=== PATIENT | male | born 1950 | race Caucasian/White ===

== ENCOUNTER 2017-05-04 06:18 | Inpatient (IN) ==
[2017-05-04] MEDS ORDERED: FAMOTIDINE 20 MG/2 ML VIAL IV STA (06:29)
[2017-05-04] MEDS ORDERED: ONDANSETRON 4 MG/2 ML VIAL IV STA (06:29)
[2017-05-04] MEDS ORDERED: SODIUM CHLORIDE 0.9% 1,000 ML IV STA (06:29)
[2017-05-04] MEDS ORDERED: SODIUM CHLORIDE 0.9% 2,000 ML IV STA (06:30)
[2017-05-04 06:46] LABS: Basophils # 0.2 10*3/uL (0.0-0.2); Basophils % 0.8 % (0.0-0.8); Eosinophils # 0.5 10*3/uL (0.0-0.87); Eosinophils % 2.6 % (0.00-10.9); Hematocrit 34.7 VOL% (42.0-52.0); Hemoglobin 11.5 GM/DL (14.0-18.0); Immature Granulocytes % 1.9 %; Immature Granulocytes Absolute 0.38 #; Lymphocytes # 2.7 10*3/uL (1.4-4.0); Lymphocytes % 13.8 % (21.2-54.2); Mean Corpuscular HGB Conc 33.1 GM/DL (32-36); Mean Corpuscular Hemoglobin 29 PG (27-34); Mean Corpuscular Volume 88.3 FL (87-102); Mean Platelet Volume 8.2 FL (9.6-12.0); Monocytes # 1.8 10*3/uL (0.11-0.8); Monocytes % 9.1 % (1.7-12.7); Neutrophils # 14.2 10*3/uL (1.4-7.4); Neutrophils % 71.8 % (38.7-73.9); Platelet Count 466 T/CUMM (130-400); Red Blood Count 3.93 MC/CUMM (3.8-5.5); Red Cell Distribution Width 13.4 % (9.3-17.3); White Blood Count 19.8 T/CUMM (4-12)
[2017-05-04] MEDS ORDERED: FAMOTIDINE 20 MG/2 ML VIAL IV ONE (06:46)
[2017-05-04] MEDS ORDERED: ONDANSETRON 4 MG/2 ML VIAL ONE ×2 (06:46→10:37)
[2017-05-04 06:55] LABS: INR 1.1; PT Patient Result 11.4 SECS; Partial Thromboplastin Time 21.2 SECS (0-40)
[2017-05-04 07:04] LABS: Albumin 3.4 G/DL (3.4-5.0); Bilirubin,Total 0.4 MG/DL (0.2-1.0); Calcium 9.1 MG/DL (8.5-10.1); Osmolality,Calculated 276.2 MOS/KG (273-304); Potassium 4.6 MMOL/L (3.5-5.1); Total Protein 6.5 G/DL (6.4-8.3)
[2017-05-04] MEDS ORDERED: ONDANSETRON 4 MG/2 ML VIAL IV PRN (08:14)
[2017-05-04 08:49] LABS: Apearance,Urine CLOUDY (Clear); Bilirubin,Urine Negative (Negative); Blood, Urine Negative (Negative); Glucose,Urine (UA) Negative (Negative); Ketones,Urine 5 mg/dL (Negative); Nitrite,Urine Negative (Negative); Protein,Urine 100 MG/DL; Urine Specific Gravity 1.021 (1.001-1.035); Urine Urobilinogen < 2.0 EU/DL (0.2-1.0); WBC,Urine <1 /HPF (0-6)
[2017-05-04 08:50] LABS: Urine Color Yellow (Yellow)
[2017-05-04] MEDS: SODIUM CHLORIDE 0.9% 1,000 ML IV SCH ×2 (10:31→18:58)
[2017-05-04] MEDS ORDERED: ACETAMINOPHEN 325 MG TABLET ONE (10:37)
[2017-05-04] MEDS: ACETAMINOPHEN 325 MG TABLET PO PRN ×2 (10:38→13:13)
[2017-05-04] MEDS: PANTOPRAZOLE 40 MG VIAL IV SCH ×2 (13:09→21:05)
[2017-05-04 14:00] LABS: Hematocrit 29.6 VOL% (42.0-52.0); Hemoglobin 9.7 GM/DL (14.0-18.0)
[2017-05-04] MEDS: oxyCODONE/ACETAMINOPHEN 5-325 MG TABLET PO PRN (17:33)
[2017-05-04 18:41] LABS: Basophils # 0.1 10*3/uL (0.0-0.2); Basophils % 0.7 % (0.0-0.8); Eosinophils # 0.3 10*3/uL (0.0-0.87); Eosinophils % 2.6 % (0.00-10.9); Hematocrit 25.4 VOL% (42.0-52.0); Hemoglobin 8.3 GM/DL (14.0-18.0); Immature Granulocytes % 0.6 %; Immature Granulocytes Absolute 0.06 #; Lymphocytes # 2.9 10*3/uL (1.4-4.0); Lymphocytes % 26.3 % (21.2-54.2); Mean Corpuscular HGB Conc 32.7 GM/DL (32-36); Mean Corpuscular Hemoglobin 29 PG (27-34); Mean Corpuscular Volume 87.6 FL (87-102); Mean Platelet Volume 8.1 FL (9.6-12.0); Monocytes # 1.5 10*3/uL (0.11-0.8); Monocytes % 14.1 % (1.7-12.7); Neutrophils # 6.1 10*3/uL (1.4-7.4); Neutrophils % 55.7 % (38.7-73.9); Platelet Count 342 T/CUMM (130-400); Red Cell Distribution Width 13.5 % (9.3-17.3); White Blood Count 10.9 T/CUMM (4-12)
[2017-05-04] MEDS ORDERED: oxyCODONE/ACETAMINOPHEN 5-325 MG TABLET PO SCH (21:00)
[2017-05-04] MEDS: ZALEPLON 5 MG CAPSULE PO PRN (21:06)
[2017-05-05] MEDS: SODIUM CHLORIDE 0.9% 1,000 ML IV SCH (03:39)
[2017-05-05 05:05] LABS: Basophils # 0.1 10*3/uL (0.0-0.2); Basophils % 0.8 % (0.0-0.8); Eosinophils # 0.4 10*3/uL (0.0-0.87); Eosinophils % 5.1 % (0.00-10.9); Hematocrit 25.5 VOL% (42.0-52.0); Hemoglobin 8.2 GM/DL (14.0-18.0); Immature Granulocytes % 0.5 %; Immature Granulocytes Absolute 0.04 #; Lymphocytes # 2.1 10*3/uL (1.4-4.0); Lymphocytes % 25.2 % (21.2-54.2); Mean Corpuscular HGB Conc 32.2 GM/DL (32-36); Mean Corpuscular Hemoglobin 29 PG (27-34); Mean Corpuscular Volume 89.2 FL (87-102); Mean Platelet Volume 8.3 FL (9.6-12.0); Monocytes # 1.2 10*3/uL (0.11-0.8); Monocytes % 13.9 % (1.7-12.7); Neutrophils # 4.5 10*3/uL (1.4-7.4); Neutrophils % 54.5 % (38.7-73.9); Platelet Count 327 T/CUMM (130-400); Red Blood Count 2.86 MC/CUMM (3.8-5.5); Red Cell Distribution Width 13.5 % (9.3-17.3); White Blood Count 8.3 T/CUMM (4-12)
[2017-05-05 05:49] LABS: Albumin 2.9 G/DL (3.4-5.0); Bilirubin,Total 0.4 MG/DL (0.2-1.0); Osmolality,Calculated 277.5 MOS/KG (273-304); Potassium 4.2 MMOL/L (3.5-5.1); Total Protein 5.3 G/DL (6.4-8.3)
[2017-05-05] MEDS ORDERED: MAGNESIUM SULF RIDER 4 GM in PREMIX 1 EACH IV PRN (10:04)
[2017-05-05] MEDS ORDERED: MAGNESIUM SULF RIDER 2 GM in PREMIX 1 EACH IV PRN (10:04)
[2017-05-05] MEDS: PANTOPRAZOLE 40 MG VIAL IV SCH (10:24)
[2017-05-05] MEDS ORDERED: hydrALAZINE 20 MG/1 ML VIAL IV PRN (10:29)
[2017-05-05] MEDS ORDERED: PROPOFOL 200 MG/20 ML VIAL IV ONE (12:21)
[2017-05-05] MEDS ORDERED: LIDOCAINE 2% 5 ML VIAL ONE (12:21)
[2017-05-05] MEDS: oxyCODONE/ACETAMINOPHEN 5-325 MG TABLET PO PRN (13:55)
[2017-05-05] MEDS: CARVEDILOL 6.25 MG TABLET PO SCH (16:58)
[2017-05-05] MEDS ORDERED: ATORVASTATIN 20 MG TABLET PO SCH (21:00)
[2017-05-05] MEDS: PANTOPRAZOLE 40 MG TABLET PO SCH (21:15)
[2017-05-05] MEDS: ZALEPLON 5 MG CAPSULE PO PRN (21:17)
[2017-05-06] MEDS: oxyCODONE/ACETAMINOPHEN 5-325 MG TABLET PO PRN ×2 (01:36→09:04)
[2017-05-06 05:11] LABS: Basophils # 0.1 10*3/uL (0.0-0.2); Basophils % 0.9 % (0.0-0.8); Eosinophils # 0.5 10*3/uL (0.0-0.87); Eosinophils % 6.4 % (0.00-10.9); Hematocrit 24.5 VOL% (42.0-52.0); Hemoglobin 7.8 GM/DL (14.0-18.0); Immature Granulocytes % 0.7 %; Immature Granulocytes Absolute 0.05 #; Mean Corpuscular HGB Conc 31.8 GM/DL (32-36); Mean Corpuscular Hemoglobin 28 PG (27-34); Mean Corpuscular Volume 89.1 FL (87-102); Mean Platelet Volume 8.6 FL (9.6-12.0); Monocytes % 13.2 % (1.7-12.7); Neutrophils # 3.9 10*3/uL (1.4-7.4); Neutrophils % 51.8 % (38.7-73.9); Platelet Count 356 T/CUMM (130-400); Red Blood Count 2.75 MC/CUMM (3.8-5.5); Red Cell Distribution Width 13.6 % (9.3-17.3); White Blood Count 7.5 T/CUMM (4-12)
[2017-05-06 05:34] LABS: Calcium 7.9 MG/DL (8.5-10.1); Osmolality,Calculated 271.7 MOS/KG (273-304); Potassium 3.9 MMOL/L (3.5-5.1)
[2017-05-06 05:39] LABS: Risk Ratio 2.63; VLDL CHOLESTEROL 20.4 MG/DL
[2017-05-06] MEDS: CARVEDILOL 6.25 MG TABLET PO SCH (09:04)
[2017-05-06] MEDS: PANTOPRAZOLE 40 MG TABLET PO SCH (09:04)
[2017-05-06] MEDS ORDERED: NITROGLYCERIN SL 0.4 MG TABLET SL PRN (09:45)
[2017-05-06] MEDS ORDERED: LOSARTAN 25 MG TABLET PO SCH (10:00)
[2017-05-06] MEDS: SODIUM CHLORIDE 0.9% 1,000 ML IV SCH (11:16)
[2017-05-06 12:04] VITALS: BP 113/65
[2017-05-07] MEDS ORDERED: amLODIPine 2.5 MG TABLET PO SCH (09:00)
== END 2017-05-06 12:45 | disposition home or self-care (01) | DRG 378 ==
LOC: EDBD → EDUNIT# → N.ED 06:18 → N.EDINP 07:06 → N.4E 11:14
PROVIDERS: ADMIT Internal Medicine; ATTEND Internal Medicine

== ENCOUNTER 2020-10-31 12:34 | Inpatient (IN) ==
[2020-10-31] MEDS ORDERED: methylPREDNISolone SOD SUC 125 MG/2 ML VIAL IV STA (12:57)
[2020-10-31] MEDS ORDERED: ASPIRIN 325 MG TABLET PO STA (12:57)
[2020-10-31] MEDS ORDERED: ONDANSETRON 4 MG/2 ML VIAL IV ONE (12:57)
[2020-10-31] MEDS ORDERED: MORPHINE 2 MG/1 ML SYRINGE IV ONE (12:57)
[2020-10-31 13:35] LABS: Basophils # 0.1 10*3/uL (0.0-0.2); Basophils % 0.6 % (0.0-0.8); Eosinophils # 0.3 10*3/uL (0.0-0.87); Eosinophils % 2.2 % (0.00-10.9); Hematocrit 40.7 VOL% (42.0-52.0); Hemoglobin 13.3 GM/DL (14.0-18.0); Immature Granulocytes % 0.5 %; Immature Granulocytes Absolute 0.08 #; Lymphocytes # 1.7 10*3/uL (1.4-4.0); Mean Corpuscular HGB Conc 32.7 GM/DL (32-36); Mean Corpuscular Volume 94.2 FL (87-102); Monocytes % 8.2 % (1.7-12.7); Neutrophils % 77.5 % (38.7-73.9); Platelet Count 453 T/CUMM (130-400); Red Blood Count 4.32 MC/CUMM (3.8-5.5); Red Cell Distribution Width 13.5 % (9.3-17.3); White Blood Count 15.4 T/CUMM (4-12)
[2020-10-31 13:41] LABS: ABG Base Excess 1.8 MMOL/L (-2.5-2.5); ABG HCO3 25.9 MMOL/L (20-26); ABG Oxygen Saturation 91.6 % (95-100); ABG PCO2 55.2 MM HG (35-48); ABG PH 7.331 (7.35-7.45); ABG PO2 70.1 MM HG (80-95); ABG TCO2 25.7 MMOL/L (23-27); Allen Test Positive
[2020-10-31 13:54] LABS: Alanine Aminotransferase 17 U/L (16-61); Albumin 3.8 G/DL (3.4-5.0); Alkaline Phosphatase 81 U/L (45-117); Aspartate Amino Transferase 22 U/L (0-37); Bilirubin,Total < 0.39 MG/DL (0.20-1.00); Blood Urea Nitrogen 10 MG/DL (7-18); Calcium 9.3 MG/DL (8.5-10.1); Carbon Dioxide 29 MMOL/L (21-32); Estimated Glom Filtration Rate 103 ML/MIN; Glucose 122 MG/DL (74-106); Osmolality,Calculated 261.7 MOS/KG (273-304); Potassium 4.5 MMOL/L (3.5-5.1); Sodium 131 MMOL/L (136-145)
[2020-10-31] MEDS ORDERED: ALBUTEROL 2.5 MG/3 ML NEB RESP TX STA ×2 (14:34→15:14)
[2020-10-31] MEDS ORDERED: ALBUTEROL/IPRATROPIUM 3 ML NEB RESP TX STA (14:34)
[2020-10-31] MEDS ORDERED: cefTRIAXone 1,000 MG in SODIUM CHLORIDE 0.9% 100 ML IV STA (15:18)
[2020-10-31] MEDS ORDERED: AZITHROMYCIN INJ 500 MG in SODIUM CHLORIDE 0.9% 250 ML IV STA (15:18)
[2020-10-31] MEDS ORDERED: ONDANSETRON 4 MG/2 ML VIAL IV PRN (15:29)
[2020-10-31] MEDS ORDERED: DEXTROSE 50% 25 GM/50 ML VIAL IV PRN (15:29)
[2020-10-31] MEDS ORDERED: hydrALAZINE 20 MG/1 ML VIAL IV PRN (15:29)
[2020-10-31] MEDS ORDERED: ACETAMINOPHEN 325 MG TABLET PO PRN (15:29)
[2020-10-31] MEDS ORDERED: DOCUSATE SODIUM 100 MG CAPSULE PO PRN (15:29)
[2020-10-31] MEDS ORDERED: GLUCAGON 1 MG VIAL IM PRN (15:29)
[2020-10-31] MEDS ORDERED: ENOXAPARIN 40 MG/0.4 ML SYRINGE SUBCUT SCH (15:30)
[2020-10-31] MEDS ORDERED: IBUPROFEN 600 MG TABLET PO PRN (16:19)
[2020-10-31] MEDS: PANTOPRAZOLE 40 MG TABLET PO SCH (16:19)
[2020-10-31] MEDS: SODIUM CHLORIDE 0.9% 1,000 ML IV SCH (16:19)
[2020-10-31] MEDS: ALBUTEROL/IPRATROPIUM 3 ML NEB RESP TX SCH (19:53)
[2020-10-31 19:57] LABS: Bilirubin,Urine Negative (Negative); Blood, Urine Negative (Negative); Glucose,Urine (UA) Negative (Negative); Ketones,Urine Negative (Negative); Nitrite,Urine Negative (Negative); Protein,Urine Negative; RBC,Urine 1 /HPF (0-4); Squamous Epithelial Cell,Urine Occasional /HPF (0-10); Urine Appearance CLEAR (Clear); Urine Color Yellow (Yellow); Urine Specific Gravity > 1.069 (1.001-1.035); Urine Urobilinogen < 2.0 EU/DL (0.2-1.0)
[2020-10-31] MEDS: CITALOPRAM 20 MG TABLET PO SCH (20:24)
[2020-10-31] MEDS: oxyCODONE/ACETAMINOPHEN 5-325 MG TABLET PO PRN (20:25)
[2020-10-31] MEDS: GABAPENTIN 300 MG CAPSULE PO SCH (20:25)
[2020-10-31] MEDS: methylPREDNISolone SOD SUC 40 MG/1 ML VIAL IV SCH (20:32)
[2020-11-01] MEDS: ALBUTEROL/IPRATROPIUM 3 ML NEB RESP TX SCH ×4 (00:32→20:18)
[2020-11-01 04:21] LABS: ABG Base Excess -0.8 MMOL/L (-2.5-2.5); ABG HCO3 25.9 MMOL/L (20-26); ABG Oxygen Saturation 91.9 % (95-100); ABG PCO2 51.5 MM HG (35-48); ABG PH 7.319 (7.35-7.45); ABG TCO2 27.5 MMOL/L (23-27); Allen Test Positive
[2020-11-01] MEDS: methylPREDNISolone SOD SUC 40 MG/1 ML VIAL IV SCH ×2 (05:08→17:07)
[2020-11-01] MEDS: SODIUM CHLORIDE 0.9% 1,000 ML IV SCH ×2 (05:29→20:56)
[2020-11-01] MEDS: oxyCODONE/ACETAMINOPHEN 5-325 MG TABLET PO PRN (05:30)
[2020-11-01 06:35] LABS: Basophils % 0.1 % (0.0-0.8); Hematocrit 37.1 VOL% (42.0-52.0); Immature Granulocytes % 0.4 %; Immature Granulocytes Absolute 0.03 #; Lymphocytes # 0.9 10*3/uL (1.4-4.0); Lymphocytes % 11.7 % (21.2-54.2); Mean Corpuscular HGB Conc 32.3 GM/DL (32-36); Mean Corpuscular Volume 95.9 FL (87-102); Mean Platelet Volume 8.2 FL (9.6-12.0); Monocytes % 3.6 % (1.7-12.7); Neutrophils % 84.2 % (38.7-73.9); Platelet Count 394 T/CUMM (130-400); Red Blood Count 3.87 MC/CUMM (3.8-5.5); Red Cell Distribution Width 13.6 % (9.3-17.3); White Blood Count 7.3 T/CUMM (4-12)
[2020-11-01 07:34] LABS: Calcium 9.2 MG/DL (8.5-10.1); Osmolality,Calculated 272.1 MOS/KG (273-304); Potassium 4.6 MMOL/L (3.5-5.1); Risk Ratio 1.88; Thyroid Stimulating Hormone 0.45 uIU/ml (0.358-3.74); VLDL Cholesterol 13.2 MG/DL
[2020-11-01] MEDS: MULTIVITAMIN (CENTRUM) TABLET PO SCH (10:25)
[2020-11-01] MEDS: PANTOPRAZOLE 40 MG TABLET PO SCH (10:25)
[2020-11-01] MEDS: GABAPENTIN 300 MG CAPSULE PO SCH ×2 (10:25→20:35)
[2020-11-01] MEDS: CITALOPRAM 20 MG TABLET PO SCH ×2 (10:25→20:35)
[2020-11-01] MEDS: amLODIPine 2.5 MG TABLET PO SCH (10:25)
[2020-11-01] MEDS: cilostazoL 100 MG TABLET PO SCH ×2 (10:25→16:56)
[2020-11-01] MEDS: AZITHROMYCIN INJ 250 MG in SODIUM CHLORIDE 0.9% 250 ML IV SCH (10:26)
[2020-11-01] MEDS: oxyCODONE IR 5 MG TABLET PO PRN ×2 (11:52→20:35)
[2020-11-01] MEDS: NICOTINE 14 MG/24 HR PATCH TRANSDERM SCH (11:57)
[2020-11-01] MEDS: MELOXICAM 7.5 MG TABLET PO SCH (13:18)
[2020-11-01] MEDS: cefTRIAXone 1,000 MG in SODIUM CHLORIDE 0.9% 100 ML IV SCH (16:55)
[2020-11-01] MEDS: MORPHINE 2 MG/1 ML SYRINGE IV PRN ×2 (18:53→23:35)
[2020-11-02] MEDS: ALBUTEROL/IPRATROPIUM 3 ML NEB RESP TX SCH ×2 (00:44→07:23)
[2020-11-02] MEDS: MORPHINE 2 MG/1 ML SYRINGE IV PRN (03:32)
[2020-11-02] MEDS: methylPREDNISolone SOD SUC 40 MG/1 ML VIAL IV SCH (04:35)
[2020-11-02 06:02] LABS: Basophils % 0.1 % (0.0-0.8); Hematocrit 34.1 VOL% (42.0-52.0); Hemoglobin 10.9 GM/DL (14.0-18.0); Immature Granulocytes % 0.9 %; Immature Granulocytes Absolute 0.12 #; Mean Corpuscular Volume 96.9 FL (87-102); Mean Platelet Volume 8.4 FL (9.6-12.0); Monocytes % 7.2 % (1.7-12.7); Neutrophils % 83.8 % (38.7-73.9); Platelet Count 414 T/CUMM (130-400); Red Blood Count 3.52 MC/CUMM (3.8-5.5); Red Cell Distribution Width 13.6 % (9.3-17.3); White Blood Count 12.8 T/CUMM (4-12)
[2020-11-02 06:46] LABS: Calcium 9.1 MG/DL (8.5-10.1); Osmolality,Calculated 280.4 MOS/KG (273-304); Potassium 5.1 MMOL/L (3.5-5.1)
[2020-11-02] MEDS: GABAPENTIN 300 MG CAPSULE PO SCH (08:05)
[2020-11-02] MEDS: amLODIPine 2.5 MG TABLET PO SCH (08:05)
[2020-11-02] MEDS: MELOXICAM 7.5 MG TABLET PO SCH (08:06)
[2020-11-02] MEDS: MULTIVITAMIN (CENTRUM) TABLET PO SCH (08:06)
[2020-11-02] MEDS: oxyCODONE IR 5 MG TABLET PO PRN (08:06)
[2020-11-02] MEDS: PANTOPRAZOLE 40 MG TABLET PO SCH (08:07)
[2020-11-02] MEDS: cilostazoL 100 MG TABLET PO SCH (08:07)
[2020-11-02] MEDS: AZITHROMYCIN INJ 250 MG in SODIUM CHLORIDE 0.9% 250 ML IV SCH (08:07)
[2020-11-02] MEDS: CITALOPRAM 20 MG TABLET PO SCH (08:07)
[2020-11-02 11:45] VITALS: BP 137/83
[2020-11-02] MEDS: NICOTINE 14 MG/24 HR PATCH TRANSDERM SCH (12:34)
[2020-11-02] MEDS: SODIUM CHLORIDE 0.9% 1,000 ML IV SCH (12:34)
[2020-11-02] MEDS: cefTRIAXone 1,000 MG in SODIUM CHLORIDE 0.9% 100 ML IV SCH (15:43)
== END 2020-11-02 15:30 | disposition home or self-care (01) | DRG 190 ==
LOC: N.ED 12:34 → INTOOBSV 15:57 → SUATTDRO 15:57 → OBSVTOIN 15:57 → N.EDINP 15:57 → N.5E 17:08
PROVIDERS: ADMIT Internal Medicine; ATTEND Internal Medicine

== ENCOUNTER 2021-06-10 15:43 | Inpatient (IN) ==
[2021-06-10] MEDS ORDERED: ALBUTEROL/IPRATROPIUM 3 ML NEB RESP TX STA ×2 (16:12→17:24)
[2021-06-10] MEDS ORDERED: methylPREDNISolone SOD SUC 125 MG/2 ML VIAL IV STA (16:12)
[2021-06-10 16:48] LABS: Basophils % 0.7 % (0.0-0.8); Eosinophils # 0.1 10*3/uL (0.0-0.87); Eosinophils % 1.1 % (0.00-10.9); Hematocrit 33.5 VOL% (42.0-52.0); Hemoglobin 10.2 GM/DL (14.0-18.0); Immature Granulocytes % 0.4 %; Immature Granulocytes Absolute 0.02 #; Lymphocytes # 1.5 10*3/uL (1.4-4.0); Lymphocytes % 26.6 % (21.2-54.2); Mean Corpuscular HGB Conc 30.4 GM/DL (32-36); Mean Corpuscular Volume 101.5 FL (87-102); Mean Platelet Volume 9.5 FL (9.6-12.0); Monocytes # 0.8 10*3/uL (0.11-0.8); Monocytes % 14.4 % (1.7-12.7); Neutrophils % 56.8 % (38.7-73.9); Platelet Count 179 T/CUMM (130-400); Red Cell Distribution Width 14.4 % (9.3-17.3); White Blood Count 5.6 T/CUMM (4-12)
[2021-06-10 17:01] LABS: Alanine Aminotransferase 19 U/L (16-61); Albumin 3.6 G/DL (3.4-5.0); Alkaline Phosphatase 65 U/L (45-117); Aspartate Amino Transferase 14 U/L (0-37); Bilirubin,Total < 0.39 MG/DL (0.20-1.00); Blood Urea Nitrogen 15 MG/DL (7-18); Calcium 8.9 MG/DL (8.5-10.1); Carbon Dioxide 38 MMOL/L (21-32); Chloride 96 MMOL/L (98-107); Estimated Glom Filtration Rate 96 ML/MIN; Glucose 119 MG/DL (74-106); Potassium 4.7 MMOL/L (3.5-5.1); Sodium 136 MMOL/L (136-145); Total Protein 6.4 G/DL (6.4-8.2)
[2021-06-10] MEDS ORDERED: FUROSEMIDE 40 MG/4 ML VIAL IV STA (17:25)
[2021-06-10] MEDS ORDERED: GLUCAGON 1 MG VIAL IM PRN (17:37)
[2021-06-10] MEDS ORDERED: DOCUSATE SODIUM 100 MG CAPSULE PO PRN (17:42)
[2021-06-10] MEDS ORDERED: ACETAMINOPHEN 325 MG TABLET PO PRN (17:42)
[2021-06-10] MEDS ORDERED: ONDANSETRON 4 MG/2 ML VIAL IV PRN (17:42)
[2021-06-10] MEDS ORDERED: BISACODYL 5 MG TABLET PO PRN (17:42)
[2021-06-10] MEDS ORDERED: DEXTROSE 10% 250 ML BAG IV PRN (17:51)
[2021-06-10] MEDS ORDERED: ALBUTEROL/IPRATROPIUM 3 ML NEB RESP TX SCH (19:00)
[2021-06-10] MEDS ORDERED: LORazepam 2 MG/1 ML VIAL IV STA (19:41)
[2021-06-10] MEDS: BUDESONIDE 0.5 MG/2 ML NEB RESP TX SCH (20:02)
[2021-06-10] MEDS: ALBUTEROL/IPRATROPIUM 3 ML NEB RESP TX SCH ×2 (20:02→23:02)
[2021-06-10 20:26] LABS: ABG Base Excess 8.7 MMOL/L (-2.5-2.5); ABG HCO3 32.4 MMOL/L (20-26); ABG Oxygen Saturation 91.9 % (95-100); ABG PH 7.294 (7.35-7.45); ABG PO2 69.5 MM HG (80-95)
[2021-06-10 20:31] LABS: ABG PCO2 78.9 MM HG (35-48)
[2021-06-10] MEDS ORDERED: FUROSEMIDE 40 MG/4 ML VIAL IV ONE (20:44)
[2021-06-10] MEDS ORDERED: CITALOPRAM 20 MG TABLET PO SCH (21:00)
[2021-06-10] MEDS: GABAPENTIN 300 MG CAPSULE PO SCH (21:05)
[2021-06-10] MEDS: ENOXAPARIN 40 MG/0.4 ML SYRINGE SUBCUT SCH (21:05)
[2021-06-10] MEDS: PANTOPRAZOLE 40 MG TABLET PO SCH (21:05)
[2021-06-10] MEDS: methylPREDNISolone SOD SUC 40 MG/1 ML VIAL IV SCH (21:05)
[2021-06-10 21:45] VITALS: BP 122/86
[2021-06-10] MEDS: oxyCODONE/ACETAMINOPHEN 5-325 MG TABLET PO PRN (22:43)
[2021-06-10] MEDS: INSULIN LISPRO 100 UNIT/ML SUBCUT SCH (22:56)
[2021-06-10 22:57] LABS: ABG Base Excess 11.7 MMOL/L (-2.5-2.5); ABG HCO3 35.5 MMOL/L (20-26); ABG Oxygen Saturation 97.7 % (95-100); ABG PH 7.358 (7.35-7.45); ABG TCO2 36.6 MMOL/L (23-27)
[2021-06-11 03:03] LABS: Barbiturates Screen,Urine Negative (Negative); Benzodiazepines Screen,Urine Negative (Negative); Cannabinoid Screen,Urine Negative (Negative); Opiate Screen,Urine Positive (Negative); Phencyclidine Screen,Urine Negative (Negative)
[2021-06-11] MEDS: methylPREDNISolone SOD SUC 40 MG/1 ML VIAL IV SCH ×3 (03:20→16:18)
[2021-06-11] MEDS ORDERED: oxyCODONE/ACETAMINOPHEN 5-325 MG TABLET PO ONE (04:00)
[2021-06-11 04:55] LABS: Hematocrit 31.6 VOL% (42.0-52.0); Hemoglobin 9.5 GM/DL (14.0-18.0); Immature Granulocytes % 0.6 %; Immature Granulocytes Absolute 0.04 #; Lymphocytes # 0.4 10*3/uL (1.4-4.0); Lymphocytes % 6.1 % (21.2-54.2); Mean Corpuscular HGB Conc 30.1 GM/DL (32-36); Mean Corpuscular Volume 99.4 FL (87-102); Mean Platelet Volume 9.6 FL (9.6-12.0); Monocytes # 0.4 10*3/uL (0.11-0.8); Neutrophils % 87.3 % (38.7-73.9); Platelet Count 168 T/CUMM (130-400); Red Blood Count 3.18 MC/CUMM (3.8-5.5); Red Cell Distribution Width 13.9 % (9.3-17.3)
[2021-06-11] MEDS: ALBUTEROL/IPRATROPIUM 3 ML NEB RESP TX SCH ×6 (05:00→23:17)
[2021-06-11 05:21] LABS: Osmolality,Calculated 267.4 MOS/KG (273-304); Potassium 4.1 MMOL/L (3.5-5.1)
[2021-06-11 05:27] LABS: ABG Base Excess 13.9 MMOL/L (-2.5-2.5); ABG HCO3 37.7 MMOL/L (20-26); ABG Oxygen Saturation 98.2 % (95-100); ABG PCO2 64.4 MM HG (35-48); ABG PH 7.414 (7.35-7.45); ABG TCO2 37.5 MMOL/L (23-27)
[2021-06-11 05:38] LABS: Risk Ratio 1.99; Thyroid Stimulating Hormone 0.407 uIU/ml (0.358-3.74); VLDL Cholesterol 17.2 MG/DL
[2021-06-11] MEDS: INSULIN LISPRO 100 UNIT/ML SUBCUT SCH ×4 (07:32→20:13)
[2021-06-11] MEDS ORDERED: MAGNESIUM SULF RIDER 2 GM/50 ML PREMIX IV ONE (07:56)
[2021-06-11] MEDS: BUDESONIDE 0.5 MG/2 ML NEB RESP TX SCH ×2 (08:00→20:10)
[2021-06-11] MEDS ORDERED: MAGNESIUM SULF RIDER 2 GM/50 ML PREMIX IV PRN (08:00)
[2021-06-11] MEDS: FUROSEMIDE 40 MG/4 ML VIAL IV SCH ×2 (09:14→16:18)
[2021-06-11] MEDS: PANTOPRAZOLE 40 MG TABLET PO SCH ×2 (09:15→20:07)
[2021-06-11] MEDS: MULTIVITAMIN (CENTRUM) TABLET PO SCH (09:15)
[2021-06-11] MEDS: GABAPENTIN 300 MG CAPSULE PO SCH ×2 (09:15→20:07)
[2021-06-11] MEDS: AZITHROMYCIN 250 MG TABLET PO SCH (09:15)
[2021-06-11] MEDS: NICOTINE 7 MG/24 HR PATCH TRANSDERM SCH (09:33)
[2021-06-11 11:05] LABS: % Iron Saturation 9.5 % (18-50); Ferritin 30.8 ng/mL (26-388)
[2021-06-11] MEDS: ZIPRASIDONE 20 MG/1 ML VIAL IM PRN (11:42)
[2021-06-11] MEDS ORDERED: FERRIC GLUCONATE COMPLEX 125 MG in SODIUM CHLORIDE 0.9% 100 ML IV ONE (16:00)
[2021-06-11] MEDS: TAMSULOSIN 0.4 MG CAPSULE PO SCH (20:07)
[2021-06-11] MEDS: oxyCODONE/ACETAMINOPHEN 5-325 MG TABLET PO PRN (20:13)
[2021-06-11] MEDS: ENOXAPARIN 40 MG/0.4 ML SYRINGE SUBCUT SCH (20:36)
[2021-06-11] MEDS: NON-FORMULARY MEDICATION (Fluticasone Propion-Salmeterol [Advair Hfa] 115-21 mcg/actuation INH SCH (22:05)
[2021-06-12] MEDS: methylPREDNISolone SOD SUC 40 MG/1 ML VIAL IV SCH ×3 (00:34→17:34)
[2021-06-12] MEDS: ZIPRASIDONE 20 MG/1 ML VIAL IM PRN (01:02)
[2021-06-12] MEDS ORDERED: LORazepam 2 MG/1 ML VIAL IV ONE ×2 (01:56→04:19)
[2021-06-12 03:55] LABS: ABG Base Excess 16.2 MMOL/L (-2.5-2.5); ABG HCO3 40.2 MMOL/L (20-26); ABG Oxygen Saturation 96.5 % (95-100); ABG PCO2 55.4 MM HG (35-48); ABG PH 7.492 (7.35-7.45); ABG PO2 86.9 MM HG (80-95); ABG TCO2 37.9 MMOL/L (23-27)
[2021-06-12] MEDS: ALBUTEROL/IPRATROPIUM 3 ML NEB RESP TX SCH ×6 (04:15→23:05)
[2021-06-12 06:46] LABS: Basophils % 0.1 % (0.0-0.8); Hematocrit 34.9 VOL% (42.0-52.0); Hemoglobin 11.2 GM/DL (14.0-18.0); Immature Granulocytes % 0.5 %; Immature Granulocytes Absolute 0.05 #; Lymphocytes # 0.6 10*3/uL (1.4-4.0); Lymphocytes % 6.1 % (21.2-54.2); Mean Corpuscular HGB Conc 32.1 GM/DL (32-36); Mean Corpuscular Volume 96.1 FL (87-102); Mean Platelet Volume 9.9 FL (9.6-12.0); Monocytes # 0.8 10*3/uL (0.11-0.8); Monocytes % 8.1 % (1.7-12.7); Neutrophils % 85.2 % (38.7-73.9); Platelet Count 189 T/CUMM (130-400); Red Blood Count 3.63 MC/CUMM (3.8-5.5); Red Cell Distribution Width 13.6 % (9.3-17.3); White Blood Count 9.2 T/CUMM (4-12)
[2021-06-12] MEDS: BUDESONIDE 0.5 MG/2 ML NEB RESP TX SCH ×2 (06:51→20:01)
[2021-06-12 07:24] LABS: Calcium 8.8 MG/DL (8.5-10.1); Osmolality,Calculated 268.4 MOS/KG (273-304); Potassium 3.6 MMOL/L (3.5-5.1)
[2021-06-12] MEDS: INSULIN LISPRO 100 UNIT/ML SUBCUT SCH ×4 (07:30→21:24)
[2021-06-12] MEDS: FUROSEMIDE 40 MG/4 ML VIAL IV SCH ×2 (07:41→09:59)
[2021-06-12] MEDS ORDERED: LORazepam 2 MG/1 ML VIAL IV PRN (08:12)
[2021-06-12] MEDS: NON-FORMULARY MEDICATION (Fluticasone Propion-Salmeterol [Advair Hfa] 115-21 mcg/actuation INH SCH ×2 (09:00→21:24)
[2021-06-12] MEDS: GABAPENTIN 300 MG CAPSULE PO SCH ×2 (09:49→20:20)
[2021-06-12] MEDS: oxyCODONE/ACETAMINOPHEN 5-325 MG TABLET PO SCH ×3 (09:49→20:21)
[2021-06-12] MEDS: cilostazoL 50 MG TABLET PO SCH ×2 (09:49→17:34)
[2021-06-12] MEDS: CITALOPRAM 20 MG TABLET PO SCH ×2 (09:49→20:22)
[2021-06-12] MEDS: chlordiazePOXIDE 10 MG CAPSULE PO SCH ×3 (09:49→21:23)
[2021-06-12] MEDS: AZITHROMYCIN 250 MG TABLET PO SCH (09:57)
[2021-06-12] MEDS: PANTOPRAZOLE 40 MG TABLET PO SCH ×2 (09:58→20:21)
[2021-06-12] MEDS: NICOTINE 7 MG/24 HR PATCH TRANSDERM SCH (09:58)
[2021-06-12] MEDS: amLODIPine 5 MG TABLET PO SCH (09:58)
[2021-06-12] MEDS: MAGNESIUM OXIDE 400 MG TABLET PO SCH (09:58)
[2021-06-12] MEDS: MULTIVITAMIN (CENTRUM) TABLET PO SCH (09:58)
[2021-06-12 11:32] LABS: RBC,Urine 48 /HPF (0-4)
[2021-06-12 11:33] LABS: Bilirubin,Urine Negative (Negative); Blood, Urine Moderate mg/dL (Negative); Glucose,Urine (UA) Negative (Negative); Ketones,Urine Negative (Negative); Nitrite,Urine Negative (Negative); Protein,Urine Negative (Negative); Urine Appearance Clear (Clear); Urine Color Light Yellow (Yellow); Urine Specific Gravity 1.015 (1.001-1.035); Urine Urobilinogen 0.2 eU/dL (<2.0); Urine pH > 9.0 (4.5-8.0)
[2021-06-12] MEDS: POTASSIUM CHLORIDE RIDER 10 MEQ/100 ML PREMIX IV PRN ×2 (13:23→14:19)
[2021-06-12] MEDS: TAMSULOSIN 0.4 MG CAPSULE PO SCH (20:21)
[2021-06-12] MEDS: ENOXAPARIN 40 MG/0.4 ML SYRINGE SUBCUT SCH (21:25)
[2021-06-13] MEDS: methylPREDNISolone SOD SUC 40 MG/1 ML VIAL IV SCH ×2 (01:32→14:33)
[2021-06-13] MEDS: ALBUTEROL/IPRATROPIUM 3 ML NEB RESP TX SCH ×6 (03:00→23:24)
[2021-06-13 06:51] LABS: Hematocrit 33.1 VOL% (42.0-52.0); Hemoglobin 10.6 GM/DL (14.0-18.0); Immature Granulocytes % 0.9 %; Immature Granulocytes Absolute 0.07 #; Lymphocytes # 0.4 10*3/uL (1.4-4.0); Mean Corpuscular Volume 95.7 FL (87-102); Mean Platelet Volume 9.4 FL (9.6-12.0); Monocytes # 0.6 10*3/uL (0.11-0.8); Monocytes % 7.5 % (1.7-12.7); Neutrophils % 86.6 % (38.7-73.9); Platelet Count 213 T/CUMM (130-400); Red Blood Count 3.46 MC/CUMM (3.8-5.5); Red Cell Distribution Width 13.8 % (9.3-17.3); White Blood Count 7.6 T/CUMM (4-12)
[2021-06-13] MEDS: BUDESONIDE 0.5 MG/2 ML NEB RESP TX SCH ×2 (06:55→18:49)
[2021-06-13 07:29] LABS: Calcium 8.8 MG/DL (8.5-10.1); Osmolality,Calculated 273.4 MOS/KG (273-304); Potassium 3.4 MMOL/L (3.5-5.1)
[2021-06-13] MEDS: INSULIN LISPRO 100 UNIT/ML SUBCUT SCH ×4 (07:48→20:25)
[2021-06-13] MEDS: FLUTICASONE 50 MCG NASAL SPRAY 16 GM BOTTLE BOTH NARES SCH (08:36)
[2021-06-13] MEDS: NICOTINE 7 MG/24 HR PATCH TRANSDERM SCH (08:37)
[2021-06-13] MEDS: chlordiazePOXIDE 10 MG CAPSULE PO SCH (08:37)
[2021-06-13] MEDS: cilostazoL 50 MG TABLET PO SCH (08:37)
[2021-06-13] MEDS: oxyCODONE/ACETAMINOPHEN 5-325 MG TABLET PO SCH ×3 (08:37→20:24)
[2021-06-13] MEDS: CITALOPRAM 20 MG TABLET PO SCH ×2 (08:38→20:22)
[2021-06-13] MEDS: PANTOPRAZOLE 40 MG TABLET PO SCH ×2 (08:38→20:22)
[2021-06-13] MEDS: POTASSIUM CHLORIDE 20 MEQ TABLET PO PRN ×3 (08:38→13:12)
[2021-06-13] MEDS: MAGNESIUM OXIDE 400 MG TABLET PO SCH (08:38)
[2021-06-13] MEDS: amLODIPine 5 MG TABLET PO SCH (08:38)
[2021-06-13] MEDS: MULTIVITAMIN (CENTRUM) TABLET PO SCH (08:38)
[2021-06-13] MEDS: GABAPENTIN 300 MG CAPSULE PO SCH ×2 (08:38→20:22)
[2021-06-13] MEDS: AZITHROMYCIN 250 MG TABLET PO SCH (08:38)
[2021-06-13] MEDS: NON-FORMULARY MEDICATION (Fluticasone Propion-Salmeterol [Advair Hfa] 115-21 mcg/actuation INH SCH ×2 (09:00→20:37)
[2021-06-13] MEDS ORDERED: METOPROLOL TARTRATE 5 MG/5 ML VIAL IV ONE ×2 (09:25→09:27)
[2021-06-13] MEDS: FUROSEMIDE 40 MG/4 ML VIAL IV SCH (09:58)
[2021-06-13] MEDS: ASPIRIN EC 81 MG TABLET PO SCH ×2 (09:58)
[2021-06-13] MEDS: FERROUS SULFATE 325 MG TABLET PO SCH (10:10)
[2021-06-13] MEDS: KETOROLAC 30 MG/1 ML VIAL IV PRN ×2 (11:05→18:35)
[2021-06-13] MEDS: ENOXAPARIN 60 MG/0.6 ML SYRINGE SUBCUT SCH ×2 (11:06→23:43)
[2021-06-13] MEDS ORDERED: carvediloL 6.25 MG TABLET PO SCH (17:00)
[2021-06-13] MEDS: SIMVASTATIN 20 MG TABLET PO SCH (20:23)
[2021-06-13] MEDS: TAMSULOSIN 0.4 MG CAPSULE PO SCH (20:23)
[2021-06-13] MEDS: carvediloL 6.25 MG TABLET PO SCH (20:23)
[2021-06-14] MEDS: methylPREDNISolone SOD SUC 40 MG/1 ML VIAL IV SCH ×2 (02:12→14:30)
[2021-06-14] MEDS: ALBUTEROL/IPRATROPIUM 3 ML NEB RESP TX SCH ×6 (03:16→23:02)
[2021-06-14 05:49] LABS: Hematocrit 31.8 VOL% (42.0-52.0); Hemoglobin 10.2 GM/DL (14.0-18.0); Immature Granulocytes % 0.5 %; Immature Granulocytes Absolute 0.04 #; Lymphocytes # 0.6 10*3/uL (1.4-4.0); Lymphocytes % 7.1 % (21.2-54.2); Mean Corpuscular HGB Conc 32.1 GM/DL (32-36); Mean Corpuscular Volume 95.8 FL (87-102); Mean Platelet Volume 9.2 FL (9.6-12.0); Monocytes # 0.5 10*3/uL (0.11-0.8); Monocytes % 6.6 % (1.7-12.7); Neutrophils % 85.8 % (38.7-73.9); Platelet Count 210 T/CUMM (130-400); Red Blood Count 3.32 MC/CUMM (3.8-5.5); Red Cell Distribution Width 13.9 % (9.3-17.3); White Blood Count 8.1 T/CUMM (4-12)
[2021-06-14 06:01] LABS: Calcium 9.1 MG/DL (8.5-10.1); Osmolality,Calculated 276.5 MOS/KG (273-304); Potassium 4.5 MMOL/L (3.5-5.1)
[2021-06-14] MEDS: BUDESONIDE 0.5 MG/2 ML NEB RESP TX SCH ×2 (07:03→20:01)
[2021-06-14] MEDS: INSULIN LISPRO 100 UNIT/ML SUBCUT SCH ×4 (07:23→20:13)
[2021-06-14] MEDS: oxyCODONE/ACETAMINOPHEN 5-325 MG TABLET PO SCH ×3 (08:08→20:13)
[2021-06-14] MEDS: FERROUS SULFATE 325 MG TABLET PO SCH (08:09)
[2021-06-14] MEDS: MAGNESIUM OXIDE 400 MG TABLET PO SCH (08:09)
[2021-06-14] MEDS: MULTIVITAMIN (CENTRUM) TABLET PO SCH (08:09)
[2021-06-14] MEDS: cilostazoL 50 MG TABLET PO SCH ×2 (08:10→17:10)
[2021-06-14] MEDS: AZITHROMYCIN 250 MG TABLET PO SCH (08:10)
[2021-06-14] MEDS: CITALOPRAM 20 MG TABLET PO SCH ×2 (08:12→20:13)
[2021-06-14] MEDS: PANTOPRAZOLE 40 MG TABLET PO SCH ×2 (08:13→20:13)
[2021-06-14] MEDS: carvediloL 6.25 MG TABLET PO SCH ×3 (08:13→21:56)
[2021-06-14] MEDS: GABAPENTIN 300 MG CAPSULE PO SCH ×2 (08:13→20:14)
[2021-06-14] MEDS: ASPIRIN EC 81 MG TABLET PO SCH (08:13)
[2021-06-14] MEDS: FUROSEMIDE 40 MG/4 ML VIAL IV SCH (08:15)
[2021-06-14] MEDS: NICOTINE 7 MG/24 HR PATCH TRANSDERM SCH (09:28)
[2021-06-14] MEDS: FLUTICASONE 50 MCG NASAL SPRAY 16 GM BOTTLE BOTH NARES SCH (09:28)
[2021-06-14] MEDS: NON-FORMULARY MEDICATION (Fluticasone Propion-Salmeterol [Advair Hfa] 115-21 mcg/actuation INH SCH ×2 (09:29→20:20)
[2021-06-14] MEDS: ENOXAPARIN 60 MG/0.6 ML SYRINGE SUBCUT SCH ×2 (11:38→22:59)
[2021-06-14] MEDS: KETOROLAC 30 MG/1 ML VIAL IV PRN ×2 (11:39→18:15)
[2021-06-14] MEDS: TAMSULOSIN 0.4 MG CAPSULE PO SCH (20:13)
[2021-06-14] MEDS: SIMVASTATIN 20 MG TABLET PO SCH (20:13)
[2021-06-15] MEDS: ALBUTEROL/IPRATROPIUM 3 ML NEB RESP TX SCH ×2 (02:59→07:39)
[2021-06-15] MEDS: methylPREDNISolone SOD SUC 40 MG/1 ML VIAL IV SCH (03:10)
[2021-06-15 05:31] LABS: Hematocrit 31.3 VOL% (42.0-52.0); Hemoglobin 10.1 GM/DL (14.0-18.0); Immature Granulocytes % 0.6 %; Immature Granulocytes Absolute 0.05 #; Lymphocytes % 13.2 % (21.2-54.2); Mean Corpuscular HGB Conc 32.3 GM/DL (32-36); Mean Corpuscular Volume 94.8 FL (87-102); Mean Platelet Volume 9.6 FL (9.6-12.0); Monocytes # 0.7 10*3/uL (0.11-0.8); Monocytes % 8.7 % (1.7-12.7); Neutrophils % 77.5 % (38.7-73.9); Platelet Count 228 T/CUMM (130-400); Red Cell Distribution Width 13.6 % (9.3-17.3); White Blood Count 7.7 T/CUMM (4-12)
[2021-06-15 05:54] LABS: Calcium 9.2 MG/DL (8.5-10.1); Osmolality,Calculated 276.8 MOS/KG (273-304); Potassium 4.4 MMOL/L (3.5-5.1)
[2021-06-15] MEDS: BUDESONIDE 0.5 MG/2 ML NEB RESP TX SCH (07:39)
[2021-06-15] MEDS: cilostazoL 50 MG TABLET PO SCH (08:28)
[2021-06-15] MEDS: AZITHROMYCIN 250 MG TABLET PO SCH (08:28)
[2021-06-15] MEDS: GABAPENTIN 300 MG CAPSULE PO SCH (08:28)
[2021-06-15] MEDS: oxyCODONE/ACETAMINOPHEN 5-325 MG TABLET PO SCH (08:28)
[2021-06-15] MEDS: carvediloL 6.25 MG TABLET PO SCH (08:29)
[2021-06-15] MEDS: MULTIVITAMIN (CENTRUM) TABLET PO SCH (08:29)
[2021-06-15] MEDS: ASPIRIN EC 81 MG TABLET PO SCH (08:29)
[2021-06-15] MEDS: FERROUS SULFATE 325 MG TABLET PO SCH (08:29)
[2021-06-15] MEDS: FUROSEMIDE 40 MG/4 ML VIAL IV SCH (08:29)
[2021-06-15] MEDS: PANTOPRAZOLE 40 MG TABLET PO SCH (08:29)
[2021-06-15] MEDS: MAGNESIUM OXIDE 400 MG TABLET PO SCH (08:29)
[2021-06-15] MEDS: INSULIN LISPRO 100 UNIT/ML SUBCUT SCH ×2 (08:30→11:06)
[2021-06-15] MEDS: FLUTICASONE 50 MCG NASAL SPRAY 16 GM BOTTLE BOTH NARES SCH (08:32)
[2021-06-15] MEDS: CITALOPRAM 20 MG TABLET PO SCH (08:32)
[2021-06-15] MEDS: NICOTINE 7 MG/24 HR PATCH TRANSDERM SCH (08:33)
[2021-06-15] MEDS: NON-FORMULARY MEDICATION (Fluticasone Propion-Salmeterol [Advair Hfa] 115-21 mcg/actuation INH SCH (08:34)
[2021-06-15] MEDS: ENOXAPARIN 60 MG/0.6 ML SYRINGE SUBCUT SCH (10:51)
== END 2021-06-15 12:25 | disposition home health service (06) | DRG 291 ==
LOC: EDUNIT# → EDBD → N.ED 15:43 → N.EDINP 17:37 → N.TELEN 20:06 → N.ICU 21:26
PROVIDERS: ADMIT Internal Medicine; ATTEND Internal Medicine